=== PATIENT | male | born 1990 ===

== ENCOUNTER 2018-06-22 04:09 | Emergency (ER) | payer SELFPAY ==
[2018-06-22] MEDS ORDERED: Sodium Chloride 0.9% 1,000 ML IV ONE (04:27)
[2018-06-22] MEDS ORDERED: Sodium Chloride 0.9% 2.5 ML Syringe FLUSH PRN (04:28)
[2018-06-22] MEDS ORDERED: Sodium Chloride 0.9% 10 ML Syringe FLUSH PRN (04:28)
[2018-06-22] MEDS ORDERED: Pantoprazole 40 MG Vial IVPUSH ONE (04:28)
[2018-06-22] MEDS ORDERED: Ondansetron 4 MG/2 ML SDV IVPUSH ONE (04:28)
[2018-06-22] MEDS ORDERED: Sodium Chloride 0.9% 20 ML ONE (04:33)
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
[2018-06-22 04:51] LABS: CHLORIDE,CL 100 mmol/L (98-107); SODIUM,NA 136 mmol/L (136-148)
== END 2018-06-22 05:30 | disposition home or self-care (01) ==
LOC: MW.ED 04:09
DX: S30.0XXA Contusion of lower back and pelvis, initial encounter (principal); R11.2 Nausea with vomiting, unspecified; R19.7 Diarrhea, unspecified; B96.81 Helicobacter pylori [H. pylori] as the cause of diseases classified elsewhere; W01.0XXA Fall on same level from slipping, tripping and stumbling without subsequent striking against object, initial encounter
CPT/HCPCS: 36415; 80053; 81001; 82150; 83690; 85025; 86677; 96361; 96374; 96375; 99284; C9113; J2405; J7040; 82962

== ENCOUNTER 2018-06-23 14:05 | Emergency (ER) | payer SELFPAY ==
[2018-06-23] MEDS ORDERED: Ondansetron 4 MG/2 ML SDV IVPUSH ONE (14:09)
[2018-06-23] MEDS ORDERED: Piperacillin/Tazobactam 3.375 GM in Sodium Chloride 0.9% 50 ML IV ONE (14:09)
[2018-06-23] MEDS ORDERED: Sodium Chloride 0.9% 1,000 ML IV ONE (14:10)
--- NOTE | 2018-06-23 14:29 | EDM.PDOC ---
ED HPI GENERAL MEDICAL PROBLEM - General Chief Complaint: General Stated Complaint: STOMACH PAIN Time Seen by Provider: 06/23/18 14:25 Source of Information: Reports: Patient - History of Present Illness INITIAL COMMENTS - FREE TEXT/NARRATIVE: HISTORY AND PHYSICAL: History of present illness: []Patient was seen in the emergency room last night for nausea vomiting diarrhea , ultimately discharged on Augmentin He presents via EMS at this time with fever 104 tachycardic in 130s blood pressure is 90/30 on arrival, he does have diffuse abdominal pain with focus in the right lower quadrant on exam Complains of fever nausea vomiting chills sweats abdominal pain is 5 out of 10 Review of systems: As per history of present illness and below otherwise all systems reviewed and negative. Past medical history: As per history of present illness and as reviewed below otherwise noncontributory. Surgical history: As per history of present illness and as reviewed below otherwise noncontributory. Social history: No reported history of drug or alcohol abuse. Family history: As per history of present illness and as reviewed below otherwise noncontributory. Physical exam: HEENT: Atraumatic, normocephalic, pupils reactive, negative for conjunctival pallor or scleral icterus, mucous membranes moist, throat clear, neck supple, nontender, trachea midline. Lungs: Clear to auscultation, breath sounds equal bilaterally, chest nontender. Heart: S1S2, regular, negative for clicks, rubs, or JVD. Abdomen: Soft, nondistended, nontender. Negative for masses or hepatosplenomegaly. Negative for costovertebral tenderness. Pelvis: Stable nontender. Genitourinary: Deferred. Rectal: Deferred. Extremities: Atraumatic, negative for cords or calf pain. Neurovascular unremarkable. Neuro: Awake, alert, oriented. Cranial nerves II through XII unremarkable. Cerebellum unremarkable. Motor and sensory unremarkable throughout. Exam nonfocal. Diagnostics: [Lab on file from previous CBC CMP UA troponin lipase blood cultures 2 lactic blood ] I did not perform CT as this would delay transfer , currently do not have ICU bed availability Therapeutics: [Normal saline Zosyn Vancomycin ] Impression: [ systemic inflammatory response syndrome abdominal pain ] Definitive disposition and diagnosis as appropriate pending reevaluation and review of above. - Related Data Allergies Allergy/AdvReac Type Severity Reaction Status Date / Time No Known Allergies Allergy Verified 06/22/18 04:20 Home Meds: Home Meds . [No Known Home Meds] 06/22/18 [History] Past Medical History HEENT History: Reports: None Cardiovascular History: Reports: None Respiratory History: Reports: None Gastrointestinal History: Reports: None Genitourinary History: Reports: None Musculoskeletal History: Reports: None Neurological History: Reports: None Psychiatric History: Reports: None Endocrine/Metabolic History: Reports: None Hematologic History: Reports: None Immunologic History: Reports: None Oncologic (Cancer) History: Reports: None Dermatologic History: Reports: None - Infectious Disease History Infectious Disease History: Reports: None Social & Family History - Family History Family Medical History: Noncontributory - Caffeine Use Caffeine Use: Reports: None ED ROS GENERAL - Review of Systems Review Of Systems: See Below ED EXAM, GENERAL - Physical Exam Exam: See Below Course - Orders/Labs/Meds Orders: Active Orders 24 hr Category Date Time Status CBC WITH AUTO DIFF [HEME] Stat Lab 06/23/18 14:09 Ordered COMPREHENSIVE METABOLIC PN,CMP [CHEM] Stat Lab 06/23/18 14:09 Ordered LACTIC ACID,WHOLE BLOOD [BG] Stat Lab 06/23/18 14:12 Ordered LIPASE [CHEM] Stat Lab 06/23/18 14:09 Ordered TROPONIN I [CHEM] Stat Lab 06/23/18 14:09 Ordered Piperacillin/Tazobactam [Piperacil-Tazobact] 3.375 gm Med 06/23/18 14:09 Active Sodium Chloride 0.9% [Normal Saline] 50 ml IV ONETIME Sodium Chloride 0.9% [Normal Saline] 1,000 ml Med 06/23/18 14:10 Active IV STAT Vancomycin [Vancocin] 1 gm Med 06/23/18 14:10 Active Sodium Chloride 0.9% [Normal Saline] 250 ml IV ONETIME Medication Orders Piperacillin Sod/Tazobactam (Sod 3.375 gm/ Sodium Chloride) 50 mls @ 100 mls/ hr IV ONETIME ONE Stop: 06/23/18 14:38 Vancomycin HCl 1 gm/ Sodium (Chloride) 250 mls @ 250 mls/hr IV ONETIME ONE Stop: 06/23/18 15:09 Sodium Chloride (Normal Saline) 1,000 mls @ 999 mls/hr IV STAT ONE Stop: 06/23/18 15:10 Meds: Medications Generic Name Dose Route Start Last Admin Trade Name Freq PRN Reason Stop Dose Admin Piperacillin Sod/Tazobactam 50 mls @ 100 mls/hr 06/23/18 14:09 Sod 3.375 gm/ Sodium Chloride IV 06/23/18 14:38 ONETIME ONE Vancomycin HCl 1 gm/ Sodium 250 mls @ 250 mls/hr 06/23/18 14:10 Chloride IV 06/23/18 15:09 ONETIME ONE Sodium Chloride 1,000 mls @ 999 mls/hr 06/23/18 14:10 Normal Saline IV 06/23/18 15:10 STAT ONE Discontinued Medications Generic Name Dose Route Start Last Admin Trade Name Damion PRN Reason Stop Dose Admin Ondansetron HCl 8 mg 06/23/18 14:09 Zofran IVPUSH 06/23/18 14:10 ONETIME ONE Departure - Departure Time of Disposition: 14:28 Disposition: DC/Tfer to [facility] 02 Condition: Serious Clinical Impression: Systemic inflammatory response syndrome, Abdominal pain - Discharge Information - My Orders Last 24 Hours: My Active Orders 06/23/18 14:09 CBC WITH AUTO DIFF [HEME] Stat COMPREHENSIVE METABOLIC PN,CMP [CHEM] Stat LIPASE [CHEM] Stat TROPONIN I [CHEM] Stat Piperacillin/Tazobactam [Piperacil-Tazobact] 3.375 gm Sodium Chloride 0.9% [ Normal Saline] 50 ml IV ONETIME 06/23/18 14:10 Sodium Chloride 0.9% [Normal Saline] 1,000 ml IV STAT Vancomycin [Vancocin] 1 gm Sodium Chloride 0.9% [Normal Saline] 250 ml IV ONETIME 06/23/18 14:12 LACTIC ACID,WHOLE BLOOD [BG] Stat - Assessment/Plan Last 24 Hours: My Active Orders 06/23/18 14:09 CBC WITH AUTO DIFF [HEME] Stat COMPREHENSIVE METABOLIC PN,CMP [CHEM] Stat LIPASE [CHEM] Stat TROPONIN I [CHEM] Stat Piperacillin/Tazobactam [Piperacil-Tazobact] 3.375 gm Sodium Chloride 0.9% [ Normal Saline] 50 ml IV ONETIME 06/23/18 14:10 Sodium Chloride 0.9% [Normal Saline] 1,000 ml IV STAT Vancomycin [Vancocin] 1 gm Sodium Chloride 0.9% [Normal Saline] 250 ml IV ONETIME 06/23/18 14:12 LACTIC ACID,WHOLE BLOOD [BG] Stat
[2018-06-23] MEDS ORDERED: Acetaminophen 650 MG Supp RECTAL ONE (14:38)
[2018-06-23 15:46] LABS: CHLORIDE,CL 100 mmol/L (98-107); SODIUM,NA 138 mmol/L (136-148)
== END 2018-06-23 14:55 ==
LOC: MW.ED 14:05
DX: R65.10 Systemic inflammatory response syndrome (SIRS) of non-infectious origin without acute organ dysfunction (principal); R10.9 Unspecified abdominal pain
CPT/HCPCS: 36415; 80053; 83605; 83690; 84484; 85025; 87040; 87186; 96365; 96368; 96375; 99285; A9270; J2405; J2543; J3370; J7040; J7050; 99284